=== PATIENT | male | born 1975 | race Caucasian/White ===

== ENCOUNTER 2019-07-24 23:52 | Emergency (ER) | payer MEDICAID ==
[~2019-07-24] VITALS: Ht 170.2 cm; Wt 92.1 kg
[2019-07-24 23:55] VITALS: BP 147/92
--- NOTE | 2019-07-24 23:55 | NUR ---
TO BED #06 AMBULATORY
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
--- NOTE | 2019-07-25 00:15 | NUR ---
PT TO XRAY VIA WHEELCHAIR.
--- NOTE | 2019-07-25 00:23 | NUR ---
PT RETURNED FROM XRAY VIA WHEELCHAIR.
[2019-07-25 01:15] VITALS: BP 138/82
== END 2019-07-25 01:15 | disposition home or self-care (01) ==
LOC: MED 23:52
DX: S02.2XXA Fracture of nasal bones, initial encounter for closed fracture (principal); F10.129 Alcohol abuse with intoxication, unspecified; W50.0XXA Accidental hit or strike by another person, initial encounter; Y93.89 Activity, other specified; Y92.89 Other specified places as the place of occurrence of the external cause; Y99.8 Other external cause status; Y90.9 Presence of alcohol in blood, level not specified
CPT/HCPCS: 70160; 99283